=== PATIENT | male | born 1975 | race African-American/Black ===

== ENCOUNTER 2018-10-31 14:25 | Emergency (ER) | payer SELFPAY ==
--- NOTE | 2018-10-31 14:34 | NUR ---
PT WAS CALLED TO ER TRIAGE ROOM - NO RESPONSE. PT IS NOT IN WAITING ROOM.
--- NOTE | 2018-10-31 15:06 | NUR ---
PT WAS CALLED TO TRIAGE AREA NO RESPONS. PT LEFT WAITING ROOM WITHOUT BEEN TRIAGED.
== END 2018-10-31 15:22 | disposition left against medical advice (07) ==
LOC: ER 14:25
DX: Z53.21 Procedure and treatment not carried out due to patient leaving prior to being seen by health care provider (principal)